=== PATIENT | male | born 1985 | race Two or more races ===

== ENCOUNTER 2019-08-29 22:41 | Emergency (ER) | payer BC ==
[2019-08-30] MEDS ORDERED: NS 0.9% 1000 ML** 1,000 ML IV ONE (00:19)
[2019-08-30] MEDS ORDERED: Pantoprazole IV* 40 MG IV ONE (00:19)
[2019-08-30] MEDS ORDERED: Ketorolac INJ* 30 MG/ML 1 ML VIAL IV PUSH ONE (00:19)
[2019-08-30] MEDS ORDERED: Ondansetron INJ* 2 MG/ML VIAL IV ONE (00:19)
--- NOTE | 2019-08-30 01:31 | ED ---
Complex/Multi-Sys Presentation - HPI Summary HPI Summary: Patient is a 34 y/o M presenting to [facility] with complaints of abdominal pain, nausea, hematemsis, TILLMAN, diffuse body aches, decreased PO intake and cough. Sx onset 08/29/19. He reports episodes of emesis in the morning and evening. Urinary Sx and diarrhea are denied. On triage, pain is rated 3/10, nothing is noted to aggravate/alleviate Sx. Patient reports taking no medications [employer]. He notes Hx of GERD for which he takes Protonix. No PSHx noted. NKDA reported. He endorses occasional alcohol usage last night. He denies tobacco and substance usage. Vitals in room are pulse 84, o2 sat 99 on RA, BP 122/78. Home medications and allergies are reviewed. - History Of Current Complaint Chief Complaint: EDAbdPain Time Seen by Provider: 08/30/19 00:18 Hx Obtained From: Patient Onset/Duration: Lasting Hours, Still Present Timing: Hours Severity Currently: Mild Location: Pain At: - headache, abdominal pain, diffuse body aches Aggravating Factor(s): nothing Alleviating Factor(s): nothing Associated Signs And Symptoms: Positive: Headache, Cough, Nausea, Abdominal Pain , Other - positive - hematemesis, diffuse body aches, decreased PO intake; negative - urinary Sx. Negative: Diarrhea - Allergies/Home Medications Allergies/Adverse Reactions: Allergies Allergy/AdvReac Type Severity Reaction Status Date / Time No Known Allergies Allergy Verified 08/29/19 22:45 Home Medications: Home Medications Pantoprazole TAB * [Protonix TAB*] 40 mg PO DAILY 08/30/19 [History Confirmed ] PMH/Surg Hx/FS Hx/Imm Hx GI History: Reports: Hx Gastroesophageal Reflux Disease Sensory History: Denies: Hx Legally Blind, Hx Deafness Opthamlomology History: Denies: Hx Legally Blind EENT History: Denies: Hx Deafness - Surgical History Surgery Procedure, Year, and Place: none as of 08/30/19 Infectious Disease History: No Infectious Disease History: Denies: Traveled Outside the [place] in Last 30 Days - Family History Known Family History: Negative: Seizure Disorder - Social History Alcohol Use: Occasionally Substance Use Type: Reports: None Smoking Status (MU): Never Smoked Tobacco Review of Systems Constitutional: Other - positive - diffuse body aches Positive: Cough Gastrointestinal: Other - positive - decreased PO intake Positive: Abdominal Pain, Vomiting - with blood, Nausea. Negative: Diarrhea Positive: no symptoms reported - no urinary Sx reported Positive: Headache All Other Systems Reviewed And Are Negative: Yes Physical Exam - Summary Physical Exam Summary: General: Well-developed, Well-nourished male. No acute distress. HEENT: Normocephalic, Atraumatic. Eyes: Conjuctiva normal, PERRL. Ears: TMs within normal limits. Nares: (-) discharge, (-) erythema. Oropharynx: Clear, mucous membranes moist, (-) exudates. Neck: Soft, FROM, (-) lymphadenopathy, (-) thyromegaly, (-) JVD. Cardiovascular: Normal sinus rhythm, (-) murmur. Lungs: Clear to auscultation bilaterally (-) wheezes, (-) rales, (-) rhonchi. Abdomen: Soft, non-tender, non-distended, (-) organomegaly, normal bowel sounds. Back: (-) CVA tenderness Extremities: No edema. Skin: Warm, dry, (-) rash. Neuro: Alert and oriented x3, no focal deficits. Psychiatric: Mood normal, affect normal. Triage Information Reviewed: Yes Vital Signs On Initial Exam: Initial Vitals Temp Pulse Resp BP Pulse Ox 97.8 F 96 15 147/84 97 08/29/19 22:43 08/29/19 22:43 08/29/19 22:43 08/29/19 22:43 08/29/19 22:43 Vital Signs Reviewed: Yes Procedures - Sedation Patient Received Moderate/Deep Sedation with Procedure: No Diagnostics - Vital Signs Vital Signs Temp Pulse Resp BP Pulse Ox 08/29/19 22:43 97.8 F 96 15 147/84 97 - Laboratory Result Diagrams: 08/30/19 01:30 08/30/19 01:30 Lab Statement: Any lab studies that have been ordered have been reviewed, and results considered in the medical decision making process. - Radiology CXR Radiology Interpretation Completed By: ED Physician Summary of Radiographic Findings: No infiltrate, no pleural effusion, pending official report. Complex Multi-Symp Course/Dx Course Of Treatment: 34 year old male presents with abdominal pain and vomiting for one day. no significant findings on physical. patient received fluids, zofran 4 mg IV, toradol 15 mg IV, and protonix 40 mg IV. workup essentially negative although non diagnostic. discharged to home on clear fluids. follow up with PCP. follow up sooner for any worsening symptoms. - Diagnoses Provider Diagnoses: Viral syndrome Discharge ED - Sign-Out/Discharge Documenting (check all that apply): Patient Departure - discharge - Discharge Plan Condition: Stable Disposition: HOME Patient Education Materials: Viral Syndrome (ED) Referrals: Moe Barnett, [Primary Care Provider] - 3 Days Additional Instructions: Drink clear fluids and rest. Please follow up with your primary care physician within three days. Please return to ED for any new or worsening symptoms. - Billing Disposition and Condition Condition: STABLE Disposition: Home - Attestation Statements Document Initiated by Elver: Yes Documenting Scribe: HEIKE ZARAGOZA Provider For Whom Elver is Documenting (Include Credential): FANG ENGEL MD Scribe Attestation: HEIKE Almaguer, scribed for FANG ENGEL MD on 08/30/19 at 0625. Scribe Documentation Reviewed: Yes Provider Attestation: The documentation as recorded by the HEIKE salas accurately reflects the service I personally performed and the decisions made by me, FANG ENGEL MD Status of Scribe Document: Viewed
[2019-08-30 01:57] LABS: ABS Eosinophils 0.1 10^3/ul (0-0.6); ABS Lymphocytes 1.6 10^3/ul (1.0-4.8); ABS Monocytes 0.6 10^3/ul (0-0.8); ABS Neutrophils 5.7 10^3/ul (1.5-7.7); Eosinophil % 1.3 %; Hematocrit 38 % (42-52); Hemoglobin 11.9 g/dL (14.0-18.0); Lymphocyte % 20.3 %; Mean Corpuscular HGB Conc 32 g/dL (31-36); Mean Corpuscular Hemoglobin 21 pg (27-31); Mean Corpuscular Volume 67 fL (80-94); Mean Platelet Volume 8.7 fL (7.4-10.4); Nucleated Red Blood Cells % 0.1; Platelet Count 171 10^3/uL (150-450); Red Cell Distribution Width 14 % (10-15); White Blood Count 8.1 10^3/uL (3.5-10.8)
[2019-08-30 01:59] LABS: INR 1.12 (0.82-1.09)
[2019-08-30 02:18] LABS: Albumin 3.5 g/dL (3.2-5.2); Albumin/Globulin Ratio 1.7 (1-3); BUN/Creatinine Ratio 15.7 (8-20); C Reactive Protein 66.69 mg/L (<8.01); EGFR African American 117.7 (>60); EGFR Non-African American 97.3 (>60); Globulin 2.1 g/dL (2-4); Potassium 3.5 mmol/L (3.5-5.0); Total Bilirubin 0.3 mg/dL (0.2-1.0); Total Protein 5.6 g/dL (6.4-8.9)
[2019-08-30 03:32] LABS: Urine Appearance Clear; Urine Bilirubin Negative (Negative); Urine Blood Negative (Negative); Urine Color Colorless; Urine Glucose Negative (Negative); Urine Ketones Negative (Negative); Urine Nitrite Negative (Negative); Urine Protein Negative (Negative); Urine Specific Gravity 1.001 (1.010-1.030); Urine Urobilinogen Negative (Negative)
[2019-08-30 04:18] VITALS: BP 115/73
== END 2019-08-30 04:15 | disposition home or self-care (01) ==
LOC: ED 22:41
DX: B34.9 Viral infection, unspecified (principal); R11.10 Vomiting, unspecified; R10.9 Unspecified abdominal pain; R06.02 Shortness of breath; K21.9 Gastro-esophageal reflux disease without esophagitis
CPT/HCPCS: 36415; 71045; 80053; 81003; 83605; 85025; 85060; 85610; 86140; 96361; 96374; 96375; 99283; J1885; J2405